=== PATIENT | female | born 1990 | race African-American/Black ===

== ENCOUNTER 2016-12-08 21:48 | Emergency (ER) | payer SELFPAY ==
[~2016-12-08] VITALS: Ht 165.1 cm; Wt 54.0 kg
[2016-12-08] MEDS ORDERED: SODIUM CHLORIDE 0.9% 1,000 ML IV ONE (22:34)
[2016-12-08] MEDS ORDERED: ONDANSETRON HCL 4MG/2ML VIAL IV STA (22:34)
[2016-12-08 23:34] LABS: BASOPHILS % 0.4 % (0.0-2.0); CHLORIDE 107 mEq/L (98-107); EOSINOPHILS % 0.7 % (0.0-5.0); HEMOGLOBIN. 12.3 g/dL (12.0-16.0); INDEX HEMOLYSI 1 (1-3); INDEX ICTERIC 1 (1-4); INDEX LIPEMIC 1 (1-3); MEAN CORPUSCULAR HEMOGLOBIN 31.1 pg (28.0-32.0); MEAN CORPUSCULAR HGB CONC 33.3 g/dL (31.0-37.0); MEAN CORPUSCULAR VOLUME 93.3 fL (81.0-99.0); MEAN PLATELET VOLUME 11.2 fl (7.4-10.4); MONOCYTES % 5.6 % (2.0-8.0); NEUTROPHILS % 69.3 % (40.0-76.0); PLATELET 151 x1000/uL (130-400); RED BLOOD CELL COUNT 3.97 mill/uL (4.2-5.4); RED CELL DISTRIBUTION WIDTH 14.5 % (11.6-14.6); WHITE BLOOD COUNT 8.6 x1000/uL (4.5-11.0)
[2016-12-08 23:37] LABS: INR 1.1; PROTHROMBIN TIME 11.3 sec
[2016-12-08 23:49] LABS: AMMONIA < 10 uMol/L (<32)
[2016-12-08 23:54] LABS: ACETAMINOPHEN < 2 ug/mL (10-30); ALANINE AMINOTRANSFERASE 26 IU/L (13-61); ALBUMIN 3.9 g/dL (3.4-5.0); ANION GAP 14; CALCIUM 8.5 mg/dL (8.5-10.1); CARBON DIOXIDE 23 mEq/L (21-32); CREATINE KINASE 197 IU/L (26-192); ETHANOL BLOOD 229 mg/dL; LIPASE 143 IU/L (73-393); UREA NITROGEN BLOOD 6 mg/dL (7-21); eGFR > 60 mL/min (>60)
[2016-12-09 01:11] LABS: CLARITY URINE CLEAR (CLEAR); COLOR URINE YELLOW (YELLOW); GLUCOSE URINE NEGATIVE (NEGATIVE); KETONES URINE 1+ (NEGATIVE); LEUKOCYTE ESTERASE URINE NEGATIVE (NEGATIVE); NITRITE URINE NEGATIVE (NEGATIVE); OCCULT BLOOD URINE NEGATIVE (NEGATIVE); PROTEIN URINE NEGATIVE (NEGATIVE); SPECIFIC GRAVITY URINE 1.014 (1.005-1.030); UROBILINOGEN URINE 0.2 E.U./dL (0.2-1.0)
[2016-12-09] MEDS ORDERED: KCL 20MEQ/100ML PREMIX 100 ML IV NR (01:45)
[2016-12-09 02:24] LABS: *AMPHETAMINES SCREEN URINE NEGATIVE (NEGATIVE); *BARBITURATES SCREEN URINE NEGATIVE (NEGATIVE); *BENZODIAZEPINES SCREEN URINE NEGATIVE (NEGATIVE); *COCAINE SCREEN URINE NEGATIVE (NEGATIVE); CANNABINOID URINE SCREEN PRESUMTIVE POSITIVE (NEGATIVE); ECSTASY MDMA SCREEN URINE NEGATIVE (NEGATIVE); METHADONE URINE SCREEN NEGATIVE (NEGATIVE); OPIATES URINE SCREEN NEGATIVE (NEGATIVE); PHENCYCLIDINE URINE SCREEN NEGATIVE (NEGATIVE)
[2016-12-09 02:50] LABS: LACTIC ACID 3.1 mmol/L (0.4-2.0)
[2016-12-09] MEDS ORDERED: SODIUM CHLORIDE 0.9% 1000ML BAG (SEPSIS BOLUS) IV NR (03:15)
[2016-12-09] MEDS ORDERED: SODIUM CHLORIDE 0.9% 1,000 ML IV ONE (03:50)
[2016-12-09] MEDS ORDERED: ONDANSETRON HCL 4MG/2ML VIAL IV ONE (09:30)
[2016-12-09 10:00] VITALS: BP 114/69
== END 2016-12-09 10:09 | disposition home or self-care (01) ==
LOC: ER 21:51
DX: F10.129 Alcohol abuse with intoxication, unspecified (principal); R51 Headache; E87.6 Hypokalemia; E87.2 Acidosis; R79.1 Abnormal coagulation profile; R41.82 Altered mental status, unspecified; Y90.7 Blood alcohol level of 200-239 mg/100 ml
CPT/HCPCS: 36415; 70450; 71010; 74176; 80053; 80305; 80329; 81003; 82140; 82550; 82962; 83605; 83690; 84443; 85025; 85610; 93005; 96361; 96374; 96375; 99291; G0482; J2405; J3480; J7030; J7040; Z7610; 80307